=== PATIENT | male | born 1975 | race African-American/Black ===

== ENCOUNTER 2020-07-12 01:55 | Emergency (ER) | payer SELFPAY ==
[~2020-07-12] VITALS: Ht 170.2 cm; Wt 68.0 kg
[2020-07-12 02:27] LABS: BASOPHILS % (AUTO) 1 % (0-1); EOSINOPHILS % (AUTO) 2 % (1-7); LYMPHOCYTES % (AUTO) 38 % (22-44); MD NO; MEAN CORPUSCULAR HEMOGLOBIN 30.3 pg (27.5-34.5); MEAN CORPUSCULAR HGB CONC 33.5 g/dL (33.2-36.2); MEAN PLATELET VOLUME 6.9 fL (7.4-10.4); MONOCYTES % (AUTO) 9 % (2-9); NEUTROPHILS % (AUTO) 51 % (42-75); PLATELET COUNT 231 x10^3/uL (130-400); RED BLOOD COUNT 4.37 x10^6/uL (4.38-5.82); RED CELL DISTRIBUTION WIDTH 13.6 % (9.4-14.8)
[2020-07-12] MEDS ORDERED: PLEASE ENTER ALLERGIES MC SCH (02:30)
[2020-07-12] MEDS ORDERED: DIPHENHYDRAMINE 50 MG/ML, 1ML IVPush ONE (02:30)
[2020-07-12] MEDS ORDERED: PROCHLORPERAZINE 5 MG/ML, 2ML IVPush ONE (02:30)
--- NOTE | 2020-07-12 02:30 | NUR ---
NIHSS evaluated and scored a 4. unable to test visual acuity due to patient not able to keep eyes open long enough to test and drifts off to sleep with snoring present. he is easily arousable but drifts back off to sleep. also, weak hand [employer] BUE and drifts down to bed but able to lift them back up with continuous drifting down to bed. Allison SOSA notified of results and ok to hold meds ordered at this time due to lethargy and patient unable to tell me if he is in pain. he stated twice that right now it is december. VS remain stable at this time
[2020-07-12 02:35] LABS: ALANINE AMINOTRANSFERASE 34 U/L (12-78); ALBUMIN 3.5 g/dL (3.4-5.0); ANION GAP 7 mmol/L (5-15); CALCIUM 8.6 mg/dL (8.5-10.1); CHLORIDE 109 mmol/L (98-107); CREATININE 1.07 mg/dL (0.7-1.3)
[2020-07-12 02:37] LABS: ALKALINE PHOSPHATASE 55 U/L (45-117); BILIRUBIN,TOTAL 0.3 mg/dL (0.2-1.0)
--- NOTE | 2020-07-12 02:57 | NUR ---
patient returned from CT. resting with eyes closed in bed. call cid in reach
--- NOTE | 2020-07-12 03:30 | NUR ---
RN re-evaluated patient's previous CROOK report and dizziness, patient denies both CROOK and dizziness at this time. reports "im just still really weak". Allison SOSA notified. meds still held. will continue to monitor.
[2020-07-12 03:52] LABS: AMPHETAMINE SCREEN, URINE Negative (Negative); BARBITURATE SCREEN, URINE Negative (Negative); BENZODIAZEPINE SCREEN, URINE Negative (Negative); CANNABINOID SCREEN, URINE Negative (Negative); COCAINE SCREEN, URINE Negative (Negative); METHADONE SCREEN, URINE Negative (Negative); OPIATE SCREEN, URINE Negative (Negative)
--- NOTE | 2020-07-12 04:26 | NUR ---
discharge instructions reviewed with patient. no further questions at this time. Patient asked if he had his bike here because he asked EMS to grab it when they picked him up. I asked conveyor line battery charger and looked outside in ambulance bay and i did not see a brown bike. non destructive testing specialist reports not hearing of this either. patient given taxi voicher to go home. patient denies CROOK, body aches, dizziness or any other pain but reports "i just am really tired". Patient denies ingestion of any medications tonight [employer]. all personal belongings with patient. IV removed per dc protocol. MD aware prior to dc of patient's HR 40's-50's. Patient had steady gait to registration desk and was able to converse with me continuously but did look drowsy. in NAD on discharge. no SOB.
[2020-07-12 04:30] VITALS: BP 111/79
== END 2020-07-12 04:33 | disposition home or self-care (01) ==
LOC: ED 04:10
DX: H53.149 Visual discomfort, unspecified (principal); R51.9 Headache, unspecified; R53.1 Weakness; R41.82 Altered mental status, unspecified; R42 Dizziness and giddiness
CPT/HCPCS: 36415; 70450; 80053; 80307; 80320; 85025; 99284; G0480